=== PATIENT | female | born 1970 | race Hispanic/Latino ===

== ENCOUNTER 2020-07-27 22:15 | Inpatient (IN) | payer MEDICARE ==
[~2020-07-27] VITALS: Ht 167.6 cm; Wt 108.9 kg
[2020-07-27] MEDS ORDERED: SODIUM CHLORIDE 0.9% 1000ML 1,000 ML IV ONE (22:45)
[2020-07-27 23:03] LABS: BASOPHILS # (AUTO) 0.1 (0.0-0.1); BASOPHILS % 0.5 % (0.0-1.0); EOSINOPHILS # (AUTO) 0.1 (0.0-0.4); EOSINOPHILS % 0.9 % (0.0-6.0); HEMATOCRIT 31.9 % (34.2-44.1); HEMOGLOBIN 10.3 g/dL (12.0-16.0); LYMPHOCYTES # (AUTO) 2.8 (1.0-3.2); LYMPHOCYTES % 27.5 % (18.0-39.1); MEAN CORPUSCULAR HEMOGLOBIN 29.6 pg (28-32); MEAN CORPUSCULAR HGB CONC 32.3 g/dL (31-35); MEAN CORPUSCULAR VOLUME 91.7 fL (81-99); MONOCYTES # (AUTO) 0.6 (0.2-0.8); MONOCYTES % 5.6 % (4.4-11.3); NEUTROPHILS # (AUTO) 6.6 (2.1-6.9); NEUTROPHILS % 65.2 % (38.7-80.0); PLATELET COUNT 277 x10e3/uL (140-360); RED BLOOD COUNT 3.48 x10e6/uL (3.6-5.1); RED CELL DISTRIBUTION WIDTH 13.7 % (11.7-14.4)
[2020-07-27 23:23] LABS: ALBUMIN 3.1 g/dL (3.5-5.0); ALBUMIN/GLOBULIN RATIO 0.7 (0.8-2.0); AMYLASE 91 U/L (25-125); ANION GAP 14.4 mmol/L (8-16); CALCIUM 8.4 mg/dL (8.4-10.2); CREATININE, SERUM 1.53 mg/dL (0.57-1.11); LIPASE 77 U/L (8-78); POTASSIUM 4.4 mmol/L (3.5-5.1)
[2020-07-27] MEDS ORDERED: DIATRIZOATE MEGL/DIATRIZOA SOD 30 ML BTL PO ONE (23:44)
[2020-07-28] VITALS (8 sets, daily range): BP systolic 109–130; BP diastolic 54–86
[2020-07-28] MEDS ORDERED: SODIUM CHLORIDE 0.9% 1000ML 1,000 ML IV ONE (01:00)
[2020-07-28] MEDS ORDERED: DEXTROSE 50% SYRINGE 50 ML IV PRN (01:30)
[2020-07-28] MEDS ORDERED: ONDANSETRON HCL INJ 2MG/ML 2ML 2 MG/ML VIAL IV PRN (01:30)
[2020-07-28] MEDS: SODIUM CHLORIDE 0.9% 1000ML 1,000 ML IV SCH ×5 (03:30→21:16)
[2020-07-28 03:57] LABS: COLOR,URINE YELLOW (YELLOW)
[2020-07-28 03:58] LABS: CLARITY,URINE CLOUDY (CLEAR); KETONES,URINE NEGATIVE (NEGATIVE); LEUKOCYTE ESTERASE ,URINE NEGATIVE (NEGATIVE); NITRITE,URINE POSITIVE (NEGATIVE); PROTEIN,URINE DIPSTICK 1+ (NEGATIVE); URINE UROBILINOGEN 0.2 mg/dL (0.2 - 1)
[2020-07-28 04:03] LABS: BACTERIA,URINE MANY /HPF; EPITHELIAL CELLS,URINE FEW /LPF; RBC,URINE 0-5 /HPF (0-5)
[2020-07-28] MEDS ORDERED: HYDROCHLOROTHIA25 MG PO (04:04)
[2020-07-28] MEDS ORDERED: FARXIGA10 MG PO (04:04)
[2020-07-28] MEDS ORDERED: ATORVASTATIN CA20 MG PO (04:04)
[2020-07-28] MEDS ORDERED: BENICAR20 MG PO (04:04)
[2020-07-28] MEDS ORDERED: LEVEMIR100 UNIT/1 SQ (04:04)
[2020-07-28] MEDS ORDERED: METFORMIN HCL500 MG PO (04:04)
[2020-07-28] MEDS ORDERED: NEURONTIN300 MG PO (04:04)
[2020-07-28] MEDS ORDERED: GLIPIZIDE5 MG PO (04:04)
[2020-07-28] MEDS: INSULIN REGULAR, HUMAN 100 UNIT/1 ML 3ML VIAL SQ SCH ×4 (09:28→20:16)
[2020-07-28] MEDS ORDERED: SIMETHICONE 40 MG/0.6 ML BTL PO PRN (10:45)
[2020-07-28 16:20] LABS: HIV 1&2 AB SCREEN NON-REACTIVE (NONREACTIVE)
[2020-07-28] MEDS ORDERED: NON-FORMULARY MEDICATION (Insulin Detemir (Levemir) 30 UNITS) SQ SCH (16:30)
[2020-07-28] MEDS: GABAPENTIN 300 MG CAP PO SCH (17:15)
[2020-07-28] MEDS: INSULIN GLARGINE 100 UNITS/ML VIAL SQ SCH (17:24)
[2020-07-28] MEDS: ATORVASTATIN 20 MG TAB PO SCH (20:08)
[2020-07-29] MEDS: SODIUM CHLORIDE 0.9% 1000ML 1,000 ML IV SCH ×2 (05:12→17:22)
[2020-07-29 05:30] VITALS: BP 135/61
[2020-07-29 05:57] LABS: BASOPHILS % 0.4 % (0.0-1.0); EOSINOPHILS # (AUTO) 0.2 (0.0-0.4); EOSINOPHILS % 2.2 % (0.0-6.0); HEMATOCRIT 28.2 % (34.2-44.1); HEMOGLOBIN 9.1 g/dL (12.0-16.0); LYMPHOCYTES # (AUTO) 3.3 (1.0-3.2); LYMPHOCYTES % 45.8 % (18.0-39.1); MEAN CORPUSCULAR HEMOGLOBIN 29.5 pg (28-32); MEAN CORPUSCULAR HGB CONC 32.3 g/dL (31-35); MEAN CORPUSCULAR VOLUME 91.6 fL (81-99); MONOCYTES # (AUTO) 0.5 (0.2-0.8); MONOCYTES % 7.5 % (4.4-11.3); NEUTROPHILS # (AUTO) 3.2 (2.1-6.9); NEUTROPHILS % 43.8 % (38.7-80.0); PLATELET COUNT 221 x10e3/uL (140-360); RED BLOOD COUNT 3.08 x10e6/uL (3.6-5.1); RED CELL DISTRIBUTION WIDTH 13.8 % (11.7-14.4)
[2020-07-29 06:22] LABS: CALCIUM IONIZED 1.3 mmol/L (1.09-1.30)
[2020-07-29 07:01] LABS: MAGNESIUM 1.9 MG/DL (1.3-2.1); PHOSPHORUS 3.8 MG/DL (2.3-4.7)
[2020-07-29 07:24] LABS: ALBUMIN 2.6 g/dL (3.5-5.0); ALBUMIN/GLOBULIN RATIO 0.7 (0.8-2.0); ANION GAP 11.2 mmol/L (8-16); CALCIUM 8.1 mg/dL (8.4-10.2); CREATININE, SERUM 1.12 mg/dL (0.57-1.11)
[2020-07-29] MEDS: INSULIN REGULAR, HUMAN 100 UNIT/1 ML 3ML VIAL SQ SCH ×4 (07:30→20:30)
[2020-07-29 07:34] LABS: POTASSIUM 5.2 mmol/L (3.5-5.1)
[2020-07-29 08:11] VITALS: BP 150/71
[2020-07-29] MEDS: OLMESARTAN 20 MG TAB PO SCH (08:35)
[2020-07-29] MEDS: GABAPENTIN 300 MG CAP PO SCH ×2 (08:36→17:22)
[2020-07-29] MEDS: DICYCLOMINE HCL 10 MG CAP PO SCH ×3 (08:36→20:30)
[2020-07-29] MEDS: HYDROCHLOROTHIAZIDE 25 MG TAB PO SCH (08:36)
[2020-07-29] MEDS: INSULIN GLARGINE 100 UNITS/ML VIAL SQ SCH ×2 (08:37→16:21)
[2020-07-29] MEDS ORDERED: SOD POLYSTYRENE SULFONATE SUSP 15 GM/60 ML BTL PO ONE (09:15)
[2020-07-29 09:39] VITALS: BP 150/71
[2020-07-29 11:50] VITALS: BP 151/79
[2020-07-29] MEDS: CARVEDILOL 3.125 MG TAB PO SCH (17:21)
[2020-07-29 20:00] VITALS: BP 137/64
[2020-07-29] MEDS: ATORVASTATIN 20 MG TAB PO SCH (20:30)
[2020-07-29 21:00] VITALS: BP 137/64
[2020-07-30] VITALS: BP 97/46
[2020-07-30] MEDS: SODIUM CHLORIDE 0.9% 1000ML 1,000 ML IV SCH ×3 (01:50→17:30)
[2020-07-30 04:00] VITALS: BP 98/51
[2020-07-30 07:00] LABS: BASOPHILS % 0.5 % (0.0-1.0); EOSINOPHILS # (AUTO) 0.1 (0.0-0.4); EOSINOPHILS % 1.8 % (0.0-6.0); LYMPHOCYTES # (AUTO) 2.4 (1.0-3.2); LYMPHOCYTES % 42.8 % (18.0-39.1); MEAN CORPUSCULAR HEMOGLOBIN 29.5 pg (28-32); MEAN CORPUSCULAR VOLUME 92.3 fL (81-99); MONOCYTES # (AUTO) 0.4 (0.2-0.8); MONOCYTES % 6.9 % (4.4-11.3); NEUTROPHILS # (AUTO) 2.7 (2.1-6.9); NEUTROPHILS % 47.8 % (38.7-80.0); PLATELET COUNT 183 x10e3/uL (140-360); RED BLOOD COUNT 2.71 x10e6/uL (3.6-5.1); RED CELL DISTRIBUTION WIDTH 13.7 % (11.7-14.4)
[2020-07-30] MEDS: INSULIN REGULAR, HUMAN 100 UNIT/1 ML 3ML VIAL SQ SCH ×3 (07:30→16:30)
[2020-07-30] MEDS: INSULIN GLARGINE 100 UNITS/ML VIAL SQ SCH (07:30)
[2020-07-30 07:31] LABS: FERRITIN 34.49 ng/mL (4.63-204.00)
[2020-07-30 07:47] LABS: BLOOD UREA NITROGEN 18 mg/dL (7-26); BUN/CREATININE RATIO 22 (6-25); CARBON DIOXIDE 20 mmol/L (22-29); CHLORIDE 116 mmol/L (98-107); CREATININE, SERUM 0.81 mg/dL (0.57-1.11); EST GLOMERULAR FILTRATION RATE > 60 ML/MIN (60-); GLUCOSE 104 mg/dL (74-118); MAGNESIUM 1.6 MG/DL (1.3-2.1); SODIUM 143 mmol/L (136-145)
[2020-07-30 07:52] LABS: CALCIUM 6.9 mg/dL (8.4-10.2)
[2020-07-30 08:36] VITALS: BP 129/65
[2020-07-30] MEDS ORDERED: CALCIUM CARBONATE 500 MG CHEWABLE TABS PO ONE ×2 (08:45→12:00)
[2020-07-30] MEDS: DICYCLOMINE HCL 10 MG CAP PO SCH ×2 (08:48→15:29)
[2020-07-30] MEDS: OLMESARTAN 20 MG TAB PO SCH (08:48)
[2020-07-30] MEDS: HYDROCHLOROTHIAZIDE 25 MG TAB PO SCH (08:48)
[2020-07-30] MEDS: CARVEDILOL 3.125 MG TAB PO SCH ×2 (08:48→17:08)
[2020-07-30] MEDS: GABAPENTIN 300 MG CAP PO SCH ×2 (08:48→17:08)
[2020-07-30 10:25] VITALS: BP 129/65
[2020-07-30] MEDS ORDERED: MAGNESIUM OXIDE 400 MG TAB PO ONE (12:30)
[2020-07-30] MEDS ORDERED: FOSFOMYCIN TROMETHAMINE 3 GM PACKET PO ONE (12:30)
[2020-07-30 12:41] VITALS: BP 150/73
[2020-07-30] MEDS ORDERED: COREG3.125 MG PO (14:28)
[2020-07-30] MEDS ORDERED: INFANTS' G40 MG/0.6 PO (14:28)
[2020-07-30] MEDS ORDERED: DICYCLOMINE HCL10 MG PO (14:28)
[2020-07-30] MEDS ORDERED: INSULIN GLARGINE 100 UNITS/ML VIAL SQ SCH (16:30)
[2020-07-30 17:02] VITALS: BP 185/77
[2020-08-04 05:10] LABS: ENDOMYSIAL ANTIBODIES, IGA Negative (Negative)
== END 2020-07-30 17:54 | disposition home or self-care (01) | DRG 683 ==
LOC: ER 22:46 → ERHOLD 07-28 01:43 → MED/SURG3 07-28 02:51 → OBSVTOIN 07-28 16:13
PROVIDERS: ADMIT Internal Medicine; ATTEND Internal Medicine
DX: N17.9 Acute kidney failure, unspecified (principal); N30.00 Acute cystitis without hematuria; E11.22 Type 2 diabetes mellitus with diabetic chronic kidney disease; I12.9 Hypertensive chronic kidney disease with stage 1 through stage 4 chronic kidney disease, or unspecified chronic kidney disease; N18.9 Chronic kidney disease, unspecified; E78.5 Hyperlipidemia, unspecified; D64.9 Anemia, unspecified; Z89.611 Acquired absence of right leg above knee; Z83.3 Family history of diabetes mellitus; Z82.49 Family history of ischemic heart disease and other diseases of the circulatory system; K52.9 Noninfective gastroenteritis and colitis, unspecified; Z79.84 Long term (current) use of oral hypoglycemic drugs; A08.8 Other specified intestinal infections; B96.20 Unspecified Escherichia coli [E. coli] as the cause of diseases classified elsewhere; B96.1 Klebsiella pneumoniae [K. pneumoniae] as the cause of diseases classified elsewhere
CPT/HCPCS: 36415; 74176; 80048; 80053; 81001; 82150; 82607; 82728; 82746; 82784; 82948; 83036; 83516; 83540; 83630; 83690; 83735; 83993; 84100; 84443; 84466; 85025; 85045; 86140; 86256; 86704; 87045; 87086; 87186; 87328; 87390; 87493; 93005; 96372; 99284; G0433; G0435; J1815; J1817; J7030